=== PATIENT | male | born 1955 | race Caucasian/White ===

== ENCOUNTER 2025-06-28 11:18 | Outpatient (AMB) | payer MEDICARE, SELFPAY ==
--- NOTE | 2025-06-28 11:25 | MHC.OFFVIS ---
Vital Signs 06/28/25 11:26 Height 5 ft 7 in Weight 153 lb BMI 24.0 BP 126/56 L Blood Pressure Location Lt brachial Position Sitting Respiration 16 Pulse 72 Pulse Source Pulse Oximeter Pulse Oximetry (%) 94 Oxygen Delivery Method Room Air Intake Visit Reasons: LOW BACK PAIN Marketing Project Coordinator Required: No Accompanied by: Spouse Allergies gabapentin Allergy (Severe, Verified 06/28/25 11:28) dyspnea, MS changes Medication List - Last Reconciled 06/28/25 by Renetta Burton LPN amlodipine 10 mg PO DAILY apixaban (Eliquis) 5 mg PO BID atorvastatin (Lipitor) 40 mg PO BEDTIME bupropion HCl XL (Wellbutrin XL) 150 mg PO QAM buspirone 10 mg PO BID chlorthalidone 25 mg PO DAILY clopidogrel (Plavix) 75 mg PO DAILY dextroamphetamine-amphetamine 10 mg ER (Adderall XR) 10 mg PO DAILY doxazosin (Cardura) 1 mg PO DAILY empagliflozin (Jardiance) 10 mg PO DAILY fluoxetine 40 mg PO DAILY irbesartan 300 mg PO DAILY metoprolol tartrate 12.5 mg PO BID mirtazapine 15 mg PO BEDTIME sitagliptin phosphate (Januvia) 100 mg PO DAILY HPI HPI LOW BACK PAIN: Details: History of Present Illness The patient is a 70-year-old male presenting with management of chronic pain related to spinal stenosis and herniated disc. The patient reports experiencing pain in the greater trochanter, lateral thigh, lower back, and neck, described as aching and stabbing with an intensity of 6 to 8 out of 10, worsening with movement. This pain has persisted for the past 25 years. The patient has a history of vascular disease and is currently on Eliquis and Plavix. He has undergone multiple procedures, including recent vascular interventions, and has been advised to hold blood thinners for certain procedures. The patient also has a history of lung cancer, but there are no metastases to the spine. He receives chemotherapy every four weeks. Pain Description - Onset: 25 years ago - Quality: Aching and stabbing - Intensity: 6 to 8 out of 10 - Location: Greater trochanter, lateral thigh, lower back, and neck - Exacerbating factors: Movement Physical Exam - Appears afebrile. - Alert and oriented. - Mood and affect appropriate. - Follows and participates in conversation appropriately. - Respiratory effort is unlabored. Pain Management - Affect: Pain limits walking significantly - Analgesia: Current pain level is 6 to 8 out of 10 - Activities of Daily Living: Pain interferes with walking [facility] Medical History (Updated 07/09/25 @ 12:15 by Rodolfo Galeana MD) Smoker PAD (peripheral artery disease) Major depression Lung cancer HTN (hypertension) Diabetes mellitus Emphysema lung COPD (chronic obstructive pulmonary disease) Colon polyp Low back pain Physical Exam Vital Signs: Last Vital Signs Pulse 72 06/28/25 11:26 Resp 16 06/28/25 11:26 BP 126/56 L 06/28/25 11:26 Pulse Ox 94 06/28/25 11:26 Oxygen Delivery Method Room Air 06/28/25 11:26 BMI result Body Mass Index 24.0 Assessment & Plan Assessment & Plan (1) Low back pain: Code(s): M54.50 - Low back pain, unspecified Category: Medical (2) Chronic pain: Code(s): G89.29 - Other chronic pain Category: Medical Plan Plan Patient was informed and verbally consented to the use of an ambient scribe for clinic note documentation during this visit. 1. Spinal Stenosis - Plan to trial temporary PNS therapy after discontinuation of blood thinners. - Awaiting vascular clearance to hold Eliquis for three days. - Consideration of buprenorphine patch as an alternative pain management strategy (start with 5 Mcg/hour patch and uptitrate as tolerated every 3-4 days per PCP). 2. Herniated L5 Disc - Temporary nerve stimulator trial planned for mid-August. - Plan to hold Eliquis for three days before the procedure. 3. Vascular Disease - Continue current medications, Eliquis and Plavix, with adjustments for procedures. 4. Lung Cancer - Continue chemotherapy every four weeks. Discussion Notes I discussed with the patient the use of a temporary nerve stimulator for pain management, which requires holding blood thinners for three days prior to the procedure. We also considered the use of a buprenorphine patch as an alternative pain management strategy, which does not require discontinuation of blood thinners. The patient was informed about the need for vascular clearance to hold Eliquis and the plan to conduct the procedure in mid-August. The potential success rate of the nerve stimulator was discussed, with an estimated 70% success rate based on experience. Patient Instructions - Continue current medications, Eliquis and Plavix, as prescribed. - Await instructions regarding the temporary nerve stimulator procedure scheduled for mid-August. - Consider trying a buprenorphine patch for pain management in consultation with primary care. - Schedule acupuncture sessions if feasible after discontinuation of Plavix. Coding Level of Care Code New Pt Level 4 (73192) Diagnoses Low back pain M54.50 Chronic pain G89.29
[2025-06-28 11:26] VITALS: BP 126/56; PULSE 72; RESP 16; O2SAT 94; BMI 24.0
== END 2025-06-28 11:56 | disposition home or self-care (01) ==
LOC: HO.PMC 11:18
PROVIDERS: PCP Registered Nurse; Visit Provider Internal Medicine
DX: G89.29 Other chronic pain (principal); M54.50 Low back pain, unspecified
CPT/HCPCS: 99204

== ENCOUNTER → 2025-06-28 11:18 | Outpatient (BNVA) | payer MEDICARE, SELFPAY | PROVIDERS: PCP Registered Nurse; Visit Provider Internal Medicine | DX: G89.29 Other chronic pain (principal); I73.9 Peripheral vascular disease, unspecified; C34.90 Malignant neoplasm of unspecified part of unspecified bronchus or lung; M48.00 Spinal stenosis, site unspecified; M51.26 Other intervertebral disc displacement, lumbar region | CPT/HCPCS: 99202 ==